=== PATIENT | male | born 1995 | race Caucasian/White ===

== ENCOUNTER 2021-11-10 22:53 | Emergency (ER) | payer OTHER ==
[~2021-11-10] VITALS: Ht 175.3 cm; Wt 77.1 kg
--- NOTE | 2021-11-10 23:00 | NUR ---
DR. Antonio RAINEY AT [facility] IN PROGRESS.
[2021-11-10 23:14] VITALS: BP 125/70
--- NOTE | 2021-11-10 23:14 | NUR ---
Patient discharged to home in stable condition. Written and verbal after care instructions given. Patient verbalizes understanding of instructions. Stressed follow up or return to ER for worsening s/s. Steady gait. Denies any pain, no SOB or labored breathing, afebrile.
== END 2021-11-10 23:15 | disposition home or self-care (01) ==
LOC: ER 22:53
DX: R21 Rash and other nonspecific skin eruption (principal); Z88.0 Allergy status to penicillin; Z91.018 Allergy to other foods
CPT/HCPCS: A4663